=== PATIENT | male | born 1995 | race Caucasian/White ===

== ENCOUNTER → 2024-10-01 | Outpatient (CLI) | payer BC ==
--- NOTE | 2024-10-02 16:42 | XR ---
EXAMINATION TYPE: XR abdomen 2V DATE OF EXAM: 10/01/2024 8:48 AM COMPARISON: None. CLINICAL INDICATION: Male, 29 years old with history of R10.9 UNSPECIFIED ABDOMINAL PAIN, TECHNIQUE: XR abdomen 2V view(s) obtained upright and supine views. FINDINGS: There is a normal bowel gas pattern. No free air is under the diaphragm. No suspicious differential a ir-fluid levels are evident. Psoas margins are normal. No organomegaly is present. No calcifications IMPRESSION: 1. [facility], , 10/02/2024 4:40 PM
== END | disposition home or self-care (01) ==
LOC: RADXRMAIN 08:27
PROVIDERS: ATTEND Internal Medicine Gastroenterology
DX: R10.9 Unspecified abdominal pain (principal)
CPT/HCPCS: 74019

== ENCOUNTER → 2024-10-21 | Outpatient (CLI) | payer BC ==
[2024-10-21 15:02] VITALS: BP 116/77; PULSE 68; RESP 16; TEMP 98.2
--- NOTE | 2024-10-21 15:59 | P.SLEEP ---
History of Present Illness H&P Date: 10/21/24 This is a 29-year-old male patient was referred to me for sleep apnea evaluation. 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 This condition leads to a variety of symptoms including aortic aneurysm and skeletal deformities and craniofacial features. For now, the patient has a large aortic aneurysm and he has been followed up at the [facility]. 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 At that time, the patient did not have any intervention done due to the complexity of the situation. He did have atrial fibrillation also and the patient was treated accordingly with anticoagulants. He remains on Eliquis 5 mg p.o. twice daily. Noted his cardiac rhythm is currently sinus. He has some limited skeletal abnormalities. No scoliosis. Other comorbidities include hypothyroidism, anxiety, hyperlipidemia and history of migraines. He was advised by the physician at [facility] for this patient to undergo a sleep study as this type of connective tissue disease has linked with sleep apnea. Based on that, the patient was referred to me The patient is not sure if he snores. He is currently living alone. However, his sleep seems to be fragmented and the patient wakes up multiple times at night and is reporting excessive daytime fatigue and sleepiness. He goes to bed at around 10 PM and wakes up 6 AM in the morning. On weekends, he sleeps between 11 PM and 2 AM and gets out of bed at 9 AM in the morning. He feels that he is averaging around 7 to 8 hours of sleep. Sometimes, he struggles to go to sleep yet for the most time, he is able to generate sleep. He is waking up at least 4-5 times in the middle of the night and his sleep remains quite fragmented. No significant weight gain. No naps during the day. He works for [employer]. He drinks coffee in the morning. No excessive utilization of alcoholic beverage. No smoking. No grinding. No nighttime chest pain or shortness of breath. No restlessness in the lower extremities. No sleepwalking or sleep talking. No sleep paralysis. No hypnagogic hallucinations. No history of falling asleep while driving. He commutes between [facility] and [place]. Despite his fatigue and tiredness and sleepiness, the patient denies falling asleep behind the wheel. No personal or family history of obstructive sleep apnea. Review of Systems Constitutional: Reports daytime sleepiness, Reports fatigue, Reports weakness Eyes: denies as per HPI, denies blurred vision, denies bulging eye, denies decreased vision, denies diplopia, denies discharge, denies dry eye, denies irritation, denies itching, denies pain, denies photophobia, denies loss of sigifredo pheral vision, denies loss of vision, denies tunnel vision/blind spots Ears: deny: decreased hearing, ear discharge, earache, tinnitus Ears, nose, mouth and throat: Reports as per HPI Breasts: absent: as per HPI, gynecomastia Respiratory: Reports as per HPI Gastrointestinal: Reports as per HPI Genitourinary: Reports as per HPI Musculoskeletal: Reports as per HPI Musculoskeletal: absent: ankle pain, ankle stiffness, ankle swelling, as per HPI, elbow pain, elbow stiffness, elbow swelling, foot pain, foot stiffness, foot swelling, hand pain, hand stiffness, hand swelling, hip pain, hip stiffness, hip swelling, knee pain, knee stiffness, knee swelling, shoulder pain, shoulder stiffness, shoulder swelling, wrist pain, wrist stiffness, wrist swelling Integumentary: Reports as per HPI Neurological: Reports as per HPI (Significant is imbalance post CVA), Reports headaches Psychiatric: Reports anxiety, Reports change in sleep habits, Reports hypersomnia, Reports sleep disturbances Endocrine: Reports excessive thirst Hematologic/Lymphatic: Reports as per HPI Allergic/Immunologic: Reports as per HPI Past Medical History Past Medical History: CVA/TIA, GERD/Reflux, Thyroid Disorder Additional Past Medical History / Comment(s): Loeys-honey syndrome, migraines, hypothyroidism, aortic aneurysm, stroke related to vertebral artery dissection History of Any Multi-Drug Resistant Organisms: None Reported Past Anesthesia/Blood Transfusion Reactions: No Reported Reaction Past Psychological History: Anxiety Smoking Status: Never smoker Past Alcohol Use History: Rare Past Drug Use History: None Reported - Past Family History Father Family Medical History: GERD/Reflux Mother Additional Family Medical History / Comment(s): Loeys-honey syndrome, headaches Medications and Allergies Home Medications Medication Instructions Recorded Confirmed Type Apixaban [Eliquis] 5 mg PO BID 10/21/24 10/21/24 History Atorvastatin [Lipitor] 40 mg PO DAILY 10/21/24 10/21/24 History Levothyroxine Sodium 25 mcg PO DAILY 10/21/24 10/21/24 History Omeprazole 40 mg PO BID 10/21/24 10/21/24 History Sacubitril/Valsartan [Entresto 24 24 - 26 mg PO BID 10/21/24 10/21/24 History mg-26 mg Tablet] Spironolactone 25 mg PO DAILY 10/21/24 10/21/24 History Ubrogepant [Ubrelvy] 100 mg PO DIRECTED PRN MDD 100 10/21/24 10/21/24 History busPIRone HCL 10 mg PO BID 10/21/24 10/21/24 History nadoloL [Corgard] 40 mg PO BID 10/21/24 10/21/24 History Physical Exam Vitals: Vital Signs Temp Pulse Resp BP Pulse Ox 10/21/24 14:59 98.2 F 68 16 116/77 97 Intake and Output 10/21/24 10/21/24 10/21/24 06:59 14:59 22:59 Other: Weight 99.79 kg The patient appeared well nourished and normally developed. Vital signs as documented. The patient has a body mass index of 28.2. Weight is 220 pounds. Head exam is unremarkable. No scleral icterus or corneal arcus noted. Hypertelorism (widely spaced eyes) Neck is without jugular venous distension, thyromegaly, or carotid bruits. Carotid upstrokes are brisk bilaterally. Lungs are clear to auscultation and percussion. Cardiac exam reveals the PMI to be normally sized and situated. Rhythm is regular. First and second heart sounds normal. No murmurs, rubs or gallops. Abdominal exam reveals normal bowel sounds, no masses, no organomegaly and no aortic enlargement. Extremities are nonedematous and both femoral and pedal pulses are normal. Hyperelastic joints Examination of the skin revealed no evidence of significant rashes, suspicious appearing nevi or other concerning lesions. Neurologically, the patient is awake and alert and the patient does not have any focal neurological deficit. Cranial nerves are essentially intact. Assessment and Plan Plan: Chronic fatigue/sleepiness. Patient referred from [facility] for sleep apnea evaluation specially with his underlying comorbidities which include history of Loeys Honey disease Loeys-Honey syndrome (LDS) is a genetic disorder affecting connective tissue, leading to a variety of symptoms including aortic aneurysms, skeletal abnormalities, and craniofacial features. 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 Maintain good sleep hygiene measures Maintain regular sleep schedule Treat comorbidities We will continue to follow and make further recommendations based on the results of the sleep study. Sleep Note - Sleep Data ESS Total: 0 - Sleep Note Sleep Note: Temperature: 98.2 F Pulse Rate: 68 Respiratory Rate: 16 Blood Pressure: 116/77 SpO2: 97 Height: 6 ft 2 in Weight: 99.79 kg BMI: Neck Circumference: 15
== END ==
LOC: 3 N SLEEP 13:52
PROVIDERS: ATTEND Internal Medicine Critical Care Medicine
DX: G47.10 Hypersomnia, unspecified (principal); Q87.89 Other specified congenital malformation syndromes, not elsewhere classified; F41.9 Anxiety disorder, unspecified; I48.0 Paroxysmal atrial fibrillation; E78.5 Hyperlipidemia, unspecified; E03.9 Hypothyroidism, unspecified; Z86.73 Personal history of transient ischemic attack (TIA), and cerebral infarction without residual deficits
CPT/HCPCS: 99211

== ENCOUNTER → 2024-12-03 | Outpatient (CLI) | payer BC ==
--- NOTE | 2024-12-09 00:27 | P.PCN ---
Date of Procedure: 12/03/24 Operative Findings: Home sleep study report History This is a 29-year-old male patient was referred to me for sleep apnea evaluation. 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 This condition leads to a variety of symptoms including aortic aneurysm and skeletal deformities and craniofacial features. For now, the patient has a large aortic aneurysm and he has been followed up at the [facility]. 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 At that time, the patient did not have any intervention done due to the complexity of the situation. He did have atrial fibrillation also and the patient was treated accordingly with anticoagulants. He remains on Eliquis 5 mg p.o. twice daily. Noted his cardiac rhythm is currently sinus. He has some limited skeletal abnormalities. No scoliosis. Other comorbidities include hypothyroidism, anxiety, hyperlipidemia and history of migraines. He was advised by the physician at [facility] for this patient to undergo a sleep study as this type of connective tissue disease has linked with sleep apnea. Based on that, the patient was referred to me The patient is not sure if he snores. He is currently living alone. However, his sleep seems to be fragmented and the patient wakes up multiple times at night and is reporting excessive daytime fatigue and sleepiness. He goes to bed at around 10 PM and wakes up 6 AM in the morning. On weekends, he sleeps between 11 PM and 2 AM and gets out of bed at 9 AM in the morning. He feels that he is averaging around 7 to 8 hours of sleep. Sometimes, he struggles to go to sleep yet for the most time, he is able to generate sleep. He is waking up at least 4-5 times in the middle of the night and his sleep remains quite fr agmented. No significant weight gain. No naps during the day. He works for [employer]. He drinks coffee in the morning. No excessive utilization of alcoholic beverage. No smoking. No grinding. No nighttime chest pain or shortness of breath. No restlessness in the lower extremities. No sleepwalking or sleep talking. No sleep paralysis. No hypnagogic hallucinations. No history of falling asleep while driving. He commutes between [facility] and [place]. Despite his fatigue and tiredness and sleepiness, the patient denies falling asleep behind the wheel. No personal or family history of obstructive sleep apnea. Based on this, the patient was given a home sleep study. Physical findings The patient's body weight is 220 pounds and the patient has a body mass index of 28.2 Technical description The [employer] system was used to complete his home sleep study. This is a type III home sleep study evaluation. The total recording duration was 8 iraida rs and 15 minutes. The study started at 9:45 PM and ended at 6 AM. There was a total of 8 hours and 3 minutes of flow and oxygen saturation monitoring. Results Respiratory analysis showed a total of 14 obstructive apneas and 61 obstructive hypopneas. The AHI was 9.3 consistent with mild disease Oxygenation The patient has a baseline pulse ox of 99% on room air oxygen while awake. Average pulse ox during sleep was 95% and the minimum pulse ox was 86%. The patient managed to maintain a pulse ox above 89% during the home sleep study Cardiac summary Average heart rate was 62 with a minimum heart rate of 47 and a maximum heart rate of 88 Assessment Mild BRENDA with an AHI of 9.3. No significant nocturnal oxygen desaturation. Chronic fatigue/sleepiness. Patient referred from [facility] for sleep apnea evaluation specially with his underlying comorbidities which include history of Loeys Ramakrishna disease Loeys-Ramakrishna syndrome (LDS) is a genetic disorder affecting connective tissue, leading to a variety of symptoms including aortic aneurysms, skeletal abnormalities, and craniofacial features. 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 The AHI was 9.3. No significant oxygen desaturations. Will discuss the results of the patient. Obviously, the patient qualifies for CPAP therapy, however, based on the severity of his BRENDA, the clinical response may not be great as the patient has mild disease at baseline. Will work on conservative measures of treating his obstructive sleep apnea including targeting his sleep hygiene measures, recommending weight loss and sleeping on a side was body position with the head of the bed elevated Avoid any sleep deprivation Maintain regular sleep schedule Treat comorbidities CPAP therapy will be offered if the patient is willing to undertake the treatment. Alternatively, the patient can also use a mandibular advancement device for treatment of mild BRENDA. Will continue to follow. Final recommendation will be done after discussing this with the patient and his physicians at [facility]
== END ==
LOC: 3 N SLEEP 16:47
PROVIDERS: ATTEND Internal Medicine Critical Care Medicine
DX: G47.33 Obstructive sleep apnea (adult) (pediatric) (principal); Q87.89 Other specified congenital malformation syndromes, not elsewhere classified; I71.20 Thoracic aortic aneurysm, without rupture, unspecified; I48.0 Paroxysmal atrial fibrillation; F41.9 Anxiety disorder, unspecified; E03.9 Hypothyroidism, unspecified; I67.9 Cerebrovascular disease, unspecified; R53.82 Chronic fatigue, unspecified; Z88.1 Allergy status to other antibiotic agents